=== PATIENT | female | born 1935 | race Caucasian/White ===

== ENCOUNTER → 2016-12-04 | Outpatient (CLI) | payer MEDICARE, OTHER ==
[~2016-12-04] MED LIST: ALLERGY10 M1 PO; ASPIR 8181 MG PO; CINNAMON PLUS1 EACH PO; DIABETA 2.5 MG2.5 MG PO; FISH OIL 10001000 MG PO; GLUCOSAMINE1000 MG PO; LORAZEPAM1 MG PO; MECLIZINE HCL25 MG PO; METFORMIN HCL500 MG PO; NEURONTIN 300300 MG PO; PROTONIX40 MG PO; SIMVASTATIN40 MG PO; TRIAMTERENE-HC1 EAC1 PO; TURMERIC500 MG PO; VITAMIN B12 PO; VITAMIN D31000 UNIT PO
== END ==
LOC: MAMO 14:59
DX: Z12.31 Encounter for screening mammogram for malignant neoplasm of breast (principal); Z90.710 Acquired absence of both cervix and uterus
CPT/HCPCS: G0202

== ENCOUNTER → 2016-12-29 | Outpatient (CLI) | payer MEDICARE, OTHER | LOC: MAMO 12-25 09:20 | DX: R91.8 Other nonspecific abnormal finding of lung field (principal); R92.0 Mammographic microcalcification found on diagnostic imaging of breast | CPT/HCPCS: G0206 ==

== ENCOUNTER → 2017-01-29 | Outpatient (CLI) | payer MEDICARE, OTHER | LOC: RAD 11:43 | DX: R92.0 Mammographic microcalcification found on diagnostic imaging of breast (principal) | CPT/HCPCS: 19081; G0206; J7050 ==

== ENCOUNTER → 2021-01-14 | Outpatient (CLI) | payer MEDICARE, OTHER ==
[~2021-01-14] MED LIST changes: +FISH OIL 1,0001 EACH PO; +FLAGYL500 MG PO; +ZANTAC150 MG PO
[2021-01-14 14:03] LABS: HEMOGLOBIN 12.5 gm/dl (12.3-15.3); RED BLOOD COUNT 4.08 M/UL (4.00-5.10); WHITE BLOOD COUNT 7.3 K/UL (4.5-11.0)
[2021-01-14 15:21] LABS: BUN/CREATININE RATIO 26 (0-10)
== END ==
LOC: MAMO 13:02
PROVIDERS: Family Medicine
DX: Z12.31 Encounter for screening mammogram for malignant neoplasm of breast (principal); E11.9 Type 2 diabetes mellitus without complications; E78.5 Hyperlipidemia, unspecified; F32.9 Major depressive disorder, single episode, unspecified; I10 Essential (primary) hypertension
CPT/HCPCS: 36415; 77063; 77067; 80053; 80061; 83036; 84443; 85027

== ENCOUNTER → 2021-12-29 | Outpatient (CLI) | payer MEDICARE, OTHER | LOC: KOH-I 10:25 | DX: M54.50 Low back pain, unspecified (principal); M41.9 Scoliosis, unspecified | CPT/HCPCS: 72100 ==

== ENCOUNTER 2022-05-31 18:02 | Emergency (ER) | payer MEDICARE, OTHER ==
[2022-05-31 18:33] LABS: HEMOGLOBIN 14.7 gm/dl (12.3-15.3); RED BLOOD COUNT 4.76 M/UL (4.00-5.10); WHITE BLOOD COUNT 4.8 K/UL (4.5-11.0)
[2022-05-31 19:10] LABS: BUN/CREATININE RATIO 25 (0-10)
[2022-05-31] MEDS ORDERED: HYDROCODON-ACE1 EAC4 PO (22:01)
[2022-05-31] MEDS ORDERED: ZOFRAN 4 MG TAB4 MG PO (22:01)
== END 2022-05-31 22:25 | disposition home or self-care (01) ==
LOC: ER1 18:02
PROVIDERS: Nurse Practitioner
DX: R10.13 Epigastric pain (principal)
CPT/HCPCS: 71045; 80053; 80076; 81001; 82550; 82553; 83690; 84484; 85025; 85610; 85730; 87086; 93005; 99284; Q9967

== ENCOUNTER → 2022-06-03 | Outpatient (CLI) | payer MEDICARE, OTHER ==
[~2022-06-03] VITALS: Ht 154.9 cm; Wt 65.5 kg
[~2022-06-03] MED LIST changes: +HYDROCODON-ACE1 EAC4 PO; +ZOFRAN 4 MG TAB4 MG PO
== END ==
LOC: EROP 14:52
DX: U07.1 COVID-19 (principal); Z23 Encounter for immunization
CPT/HCPCS: M0222; Q0222